=== PATIENT | male | born 1945 | race Caucasian/White ===

== ENCOUNTER 2017-06-07 00:01 | Outpatient (RCR) | payer MEDICARE, MEDICAID, SELFPAY | END 2017-07-06 | disposition home or self-care (01) | LOC: IOPBV 00:01 | PROVIDERS: ATTEND Psychiatry & Neurology Psychiatry | DX: F31.9 Bipolar disorder, unspecified (principal) | CPT/HCPCS: 90832; 90853 ==

== ENCOUNTER → 2017-12-04 | Outpatient (CLI) | payer MEDICARE, OTHER ==
[2017-12-04 15:08] LABS: HEMOGLOBIN A1C 6.9 % (4.5-6.2)
[2017-12-04 15:10] LABS: CHOL/HDL RATIO 4.4 (4.2-7.3)
== END | disposition home or self-care (01) ==
LOC: LABMN 12:15
PROVIDERS: ATTEND Psychiatry & Neurology Psychiatry
DX: F31.32 Bipolar disorder, current episode depressed, moderate (principal); R79.89 Other specified abnormal findings of blood chemistry
CPT/HCPCS: 82947; 83036

== ENCOUNTER → 2018-01-08 | Outpatient (CLI) | payer MEDICARE, OTHER | END | disposition home or self-care (01) | LOC: LABMN 11:30 | PROVIDERS: ATTEND Psychiatry & Neurology Psychiatry | DX: F25.0 Schizoaffective disorder, bipolar type (principal) | CPT/HCPCS: 86705; 86706; 86708; 86709; 86803; 87340 ==